=== PATIENT | female | born 1975 | race Caucasian/White ===

== ENCOUNTER → 2018-05-15 | Outpatient (CLI) | payer BC ==
--- NOTE | 2018-05-16 11:33 | RADIOLOGY IMAGING REPORT ---
FACILITY: [facility] [place] PATIENT NAME: JAYCEE LEMUS : [id number] MR: [id number] V: [id number] EXAM DATE: [id number] ORDERING PHYSICIAN: ALTA ENCISO TECHNOLOGIST: Deb Washington PROCEDURE:BILATERAL DIGITAL SCREENING MAMMOGRAM WITH CAD ASSISTED INTERPRETATION & 3D TOMOSYNTHESIS COMPARISON:Prior mammograms 03/30/17 back to 02/24/15. INDICATIONS:SCREENING FINDINGS: The breast parenchyma is predominantly fatty replaced. In the Right breast there is a circumscribed nodule that overlies the pectorals muscle at approximately 9 o'clock which is only partially captured in the field of view. This probably represents a lymph node beyond the field of view of all prior studies but this warrants confirmation with additional views. In the Left breast MLO view located 2cm behind the nipple is a 5mm asymmetry which is not seen in the prior studies. The corresponding CC view is normal. DIAGNOSTIC CATEGORY 0--INCOMPLETE: NEED ADDITIONAL IMAGING EVALUATION. RECOMMENDATIONS: ADDITIONAL MAMMOGRAPHIC VIEWS REQUIRED: BILATERAL BREASTS. ULTRASOUND: BILATERAL BREASTS. IMPRESSION: BIRADS 0: Incomplete. Right breast: Recommend Right whole mediolateral view and XCC view in an attempt to capture a posterior nodule in its entirety. Lymph node favored but indeterminate on this exam and not seen on prior studies. Left breast: Recommend Left MLO, Spot compression, 2D & 3D images and mediolateral view. Ultrasound to follow in either breast indicated by additional views. Dictated by: Bacilio Talley M.D. on 05/15/2018 at 16:45 Transcribed by: NATHALIE on 05/16/2018 at 7:57 Approved by: Bacilio Talley M.D. on 05/16/2018 at 11:32 [facility]
== END ==
LOC: MAMO 02:13
PROVIDERS: ATTEND Obstetrics & Gynecology
DX: Z12.31 Encounter for screening mammogram for malignant neoplasm of breast (principal); R92.8 Other abnormal and inconclusive findings on diagnostic imaging of breast
CPT/HCPCS: 77063; 77067

== ENCOUNTER → 2018-05-29 | Outpatient (CLI) | payer BC ==
--- NOTE | 2018-05-29 17:25 | RADIOLOGY IMAGING REPORT ---
FACILITY: [facility] - [place] PATIENT NAME: JAYCEE LEMUS : [id number] MR: [id number] V: [id number] EXAM DATE: ORDERING PHYSICIAN: ALTA ENCISO TECHNOLOGIST: Lesley Hernandez PROCEDURE:BILATERAL DIAGNOSTIC DIGITAL MAMMOGRAM WITH CAD ASSISTED INTERPRETATION & 3D TOMOSYNTHESIS COMPARISON:Prior mammograms 05/15/18, 03/30/17, 03/29/16, 02/24/15. INDICATIONS:FURHTER EVAL FINDINGS: The patient returns for a mediolateral view of the Left breast a Spot compression view in the Left MLO projection and a Right XCC view. The nodular density in the upper outer quadrant of the Right breast posterior 1/3 appears to represent several small contiguous lymph nodes. The small 5mm asymmetry 2cm behind the Left nipple on the recent Left MLO view appear to dissipate with compression and on the Left MLO view. There is no demonstration of malignant appearing mass, or calcifications in either breast. DIAGNOSTIC CATEGORY 2--BENIGN FINDING. RECOMMENDATIONS: ROUTINE MAMMOGRAM AND CLINICAL EVALUATION. IMPRESSION: BIRADS 2: Benign finding. No significant abnormality is seen. Dictated by: Clarisa Marie M.D. on 05/29/2018 at 15:42 Transcribed by: NATHALIE on 05/29/2018 at 16:00 Approved by: Clarisa Marie M.D. on 05/29/2018 at 17:24 [facility]
== END ==
LOC: MAMO 01:20
PROVIDERS: ATTEND Obstetrics & Gynecology
DX: R92.8 Other abnormal and inconclusive findings on diagnostic imaging of breast (principal)
CPT/HCPCS: 77062; 77066